=== PATIENT | male | born 1970 | race Caucasian/White ===

== ENCOUNTER 2020-07-12 20:47 | Emergency (ER) | payer BC ==
[~2020-07-12] VITALS: Ht 177.8 cm; Wt 83.9 kg
[2020-07-12 20:56] VITALS: BP 137/88
--- NOTE | 2020-07-12 20:56 | NUR ---
ED Nurse Note: Patient walked into ED sent by Dr. Davidson for a bamlanivimab infusion. patient reports of initial onset of symptoms 2 days ago. reports of body aches and cough. at time of triage, patient's temp currently at 103.0 oral. pt. aaox4. ambulatory
[2020-07-12] MEDS ORDERED: Acetaminophen 500mg (ES) tab ORAL ONE (21:03)
[2020-07-12] MEDS: Acetaminophen 500mg (ES) tab ORAL ONE (21:14)
--- NOTE | 2020-07-12 21:14 | NUR ---
ED Nurse Note: XRAY AT THE BEDSIDE
[2020-07-12 21:32] LABS: BASOPHILS % (AUTO) 0.8 % (0.0-2.0); EOSINOPHILS % (AUTO) 0.5 % (0.0-3.0); HEMATOCRIT 44.1 % (42.0-52.0); HEMOGLOBIN 16.1 G/DL (14.2-18.0); LYMPHOCYTES % (AUTO) 16.7 % (20.0-45.0); MEAN CORPUSCULAR VOLUME 81 FL (80-99); MONOCYTES % (AUTO) 9.9 % (1.0-10.0); NEUTROPHILS % (AUTO) 72.2 % (45.0-75.0); PLATELET COUNT 201 K/UL (150-450); RED BLOOD COUNT 5.42 M/UL (4.70-6.10); RED CELL DISTRIBUTION WIDTH 12.6 % (11.6-14.8); WHITE BLOOD COUNT 4.8 K/UL (4.8-10.8)
[2020-07-12 21:45] LABS: CALCIUM 8.3 MG/DL (8.5-10.1); CREATININE 1.3 MG/DL (0.55-1.30); POTASSIUM 3.7 MMOL/L (3.5-5.1)
[2020-07-12 21:50] LABS: ALBUMIN 3.6 G/DL (3.4-5.0); BILIRUBIN,TOTAL 0.7 MG/DL (0.2-1.0)
[2020-07-12] MEDS: Bamlanivimab 700 MG in NS 275 ML IVPB SCH (22:14)
[2020-07-12] MEDS: Bamlanivimab Fact Sheet MISC ONE (22:14)
--- NOTE | 2020-07-12 22:44 | Emergency Room Report ---
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 COVID-19 Screening: Positive COVID-19 COVID-19 Testing Source: clinic Patient History Past Medical History: see triage record Reviewed Nursing Documentation: PMH: Agreed; PSxH: Agreed Nursing Documentation-PMH Past Medical History: No History, Except For Review of Systems All Other Systems: negative except mentioned in HPI Physical Exam Vital Signs Date Time Temp Pulse Resp B/P (MAP) Pulse Ox O2 Delivery O2 Flow Rate FiO2 07/12/20 20:56 102.9 118 18 137/88 (104) 93 Room Air Sp02 EP Interpretation: reviewed, normal General Appearance: well appearing, no apparent distress, alert Head: normocephalic, atraumatic Eyes: bilateral eye PERRL, bilateral eye EOMI ENT: uvula midline, dry mucus membranes Neck: supple, thyroid normal, supple/symm/no masses Respiratory: lungs clear, no respiratory distress, no retraction, no accessory muscle use Cardiovascular #1: normal peripheral pulses, no edema, no gallop, no murmur, tachycardia Gastrointestinal: non tender, soft, no guarding, no rebound Musculoskeletal: normal inspection Neurologic: alert, oriented x3 Psychiatric: mood/affect normal Skin: no rash, warm/dry Medical Decision Making Diagnostic Impression: Primary Impression: COVID-19 ER Course 50-year-old male presents for bamlanivimab therapy Patient tolerated procedure well with improvement Patient also given 1 L of NS for hydration Disposition home with return precautions follow-up with PCP continue isolation precautions Covid handout provided to patient Laboratory Tests Test 07/12/20 21:11 White Blood Count 4.8 K/UL (4.8-10.8) Red Blood Count 5.42 M/UL (4.70-6.10) Hemoglobin 16.1 G/DL (14.2-18.0) Hematocrit 44.1 % (42.0-52.0) Mean Corpuscular Volume 81 FL (80-99) Mean Corpuscular Hemoglobin 29.6 PG (27.0-31.0) Mean Corpuscular Hemoglobin Concent 36.4 G/DL (32.0-36.0) H Red Cell Distribution Width 12.6 % (11.6-14.8) Platelet Count 201 K/UL (150-450) Mean Platelet Volume 7.1 FL (6.5-10.1) Neutrophils (%) (Auto) 72.2 % (45.0-75.0) Lymphocytes (%) (Auto) 16.7 % (20.0-45.0) L Monocytes (%) (Auto) 9.9 % (1.0-10.0) Eosinophils (%) (Auto) 0.5 % (0.0-3.0) Basophils (%) (Auto) 0.8 % (0.0-2.0) D-Dimer 0.61 mg/L FEU (0.00-0.49) H Sodium Level 135 MMOL/L (136-145) L Potassium Level 3.7 MMOL/L (3.5-5.1) Chloride Level 100 MMOL/L (98-107) Carbon Dioxide Level 27 MMOL/L (21-32) Anion Gap 9 mmol/L (5-15) Blood Urea Nitrogen 20 mg/dL (7-18) H Creatinine 1.3 MG/DL (0.55-1.30) Estimated Glomerular Filtration Rate 58.2 mL/min (>60) Glucose Level 125 MG/DL (74-106) H Calcium Level 8.3 MG/DL (8.5-10.1) L Ferritin 1349 NG/ML (8-388) H Total Bilirubin 0.7 MG/DL (0.2-1.0) Aspartate Amino Transferase (AST) 34 U/L (15-37) Alanine Aminotransferase (ALT) 51 U/L (12-78) Alkaline Phosphatase 95 U/L (46-116) Total Protein 7.3 G/DL (6.4-8.2) Albumin 3.6 G/DL (3.4-5.0) Globulin 3.7 g/dL Albumin/Globulin Ratio 1.0 (1.0-2.7) Chest X-Ray Diagnostic Results Chest X-Ray Diagnostic Results : Chest X-Ray Ordered: Yes # of Views/Limited/Complete: 1 View Indication: Shortness of Breath EP Interpretation: Yes Interpretation: no consolidation, no effusion, no pneumothorax, no acute cardiopulmonary disease Impression: No acute disease Electronically Signed by: Wally Reddy MD Last Vital Signs Date Time Temp Pulse Resp B/P (MAP) Pulse Ox O2 Delivery O2 Flow Rate FiO2 07/12/20 20:56 118 18 Room Air 07/12/20 20:56 102.9 137/88 93 Disposition: HOME, SELF-CARE Condition: Stable Referrals: Jeffrey Davidson MD (PCP) Patient Instructions: Upper Respiratory Infection, Adult, [id number] Additional Instructions: The patient was provided with discharge instructions, notified to follow-up with a primary care doctor and or specialist in the next 24-48 hours, and to return to the ED if they have worsening of their symptoms. Please note that this report is being documented using DRAGON technology. This can lead to erroneous entry secondary to incorrect interpretation by the dictating instrument. Wally Reddy MD Jul 12, 2020 22:44
--- NOTE | 2020-07-12 23:00 | NUR ---
ED Nurse Note: Report received from PATRICIA DALE
--- NOTE | 2020-07-12 23:21 | NUR ---
ED Nurse Note: Rapid covid test and flu test swab sent
[2020-07-12 23:22] VITALS: BP 137/88
--- NOTE | 2020-07-13 00:52 | NUR ---
ER DISCHARGE NOTE: Patient is cleared to be discharged per ERMD, pt is aox4, on room air, with stable vital signs. pt was given dc and prescription instructions, pt was able to verbalize understanding, pt id band and iv site removed without complications. pt is able to ambulate with steady gait. pt took all belongings.
[2020-07-13 00:53] VITALS: BP 137/88
--- NOTE | 2020-07-13 13:59 | Diagnostic Imaging Report ---
Indication: Cough Technique: One view of the chest Comparison: none Findings: Lungs and pleural spaces are clear. Heart size is normal. Impression: No acute process
== END 2020-07-13 00:54 | disposition home or self-care (01) ==
LOC: EMR 21:59
DX: U07.1 COVID-19 (principal)
CPT/HCPCS: 36415; 71045; 80053; 82728; 85025; 85379; 86710; 96361; 96365; 99284; J7030; J7050; Q0239; U0002